=== PATIENT | female | born 1945 | race Caucasian/White ===

== ENCOUNTER 2019-01-30 01:56 | Outpatient (CLI) | payer MEDICARE, OTHER, SELFPAY ==
--- NOTE | 2019-01-30 12:00 | DI.MAMMO_ITS ---
SYMPTOM/DIAGNOSIS: SCREENING MAMMO FOR BREAST CANCER Z12.31 BILATERAL SCREENING MAMMOGRAM: Mammograms were interpreted according to the usual protocol including computer analysis with CAD system, tomosynthesis and C view imaging. Comparison is made with exams from 2012 through 2017. The breasts are composed of scattered fibroglandular densities, breast density category B. No suspicious masses or suspicious microcalcifications are seen. There has been no significant change. IMPRESSION: Category 1, negative mammogram. Yearly screening mammography is recommended. [facility] ASSESSMENT OF FINDINGS: Negative. Category 1. Patient will receive a letter notifying them of these results. BI-RADS category B. There are scattered areas of fibroglandular density.
== END 2019-01-30 02:16 ==
PROVIDERS: PCP Family Medicine; Visit Provider Family Medicine
DX: Z12.31 Encounter for screening mammogram for malignant neoplasm of breast (principal)
CPT/HCPCS: 77063; 77067

== ENCOUNTER 2021-01-28 01:20 | Outpatient (CLI) | payer MEDICARE, OTHER, SELFPAY ==
--- NOTE | 2021-01-28 13:52 | DI.MAMMO_ITS ---
Exam(s) MAMMO SCREENING EXAM: MAMMO SCREENING CLINICAL HISTORY: screening,Z12.39 TECHNIQUE: Mammograms were interpreted according to the usual protocol including computer analysis w [facility] CAD system, tomosynthesis and C-view imaging. COMPARISON: FINDINGS: The breasts are heterogeneously dense. No dominant mass or clumped microcalcification is identified in either breast. The current examination is compared with previous examinations including January 2019 and there has been no gross interval change in appearance in comparison with the prior studies. IMPRESSION: No specific evidence of malignancy at this time. Routine screening examinations are suggested at yea rly intervals in this age group according to the ACS ACR guidelines. BI-RADS Cat 1 - Negative Breast Density - Category C - Heterogeneously dense
== END 2021-01-28 01:40 ==
PROVIDERS: PCP Family Medicine; Visit Provider Family Medicine
DX: Z12.31 Encounter for screening mammogram for malignant neoplasm of breast (principal)
CPT/HCPCS: 77063; 77067

== ENCOUNTER → 2021-05-29 10:51 | Outpatient (BNVA) | payer MEDICARE, OTHER, SELFPAY | PROVIDERS: PCP Family Medicine; Referring Provider Family Medicine; Visit Provider Physical Therapy Assistant | DX: Z12.11 Encounter for screening for malignant neoplasm of colon (principal); Z86.010 Personal history of colon polyps ==

== ENCOUNTER 2021-06-13 03:16 | Outpatient (CLI) | payer MEDICARE, OTHER, SELFPAY ==
[2021-06-13 12:37] LABS: Source Nasal/Nares
[2021-06-13 20:16] LABS: COVID-19 PCR Negative (Negative)
== END 2021-06-13 03:17 | disposition home or self-care (01) ==
LOC: LBO 03:16
PROVIDERS: PCP Family Medicine; Visit Provider Surgery
DX: Z20.822 Contact with and (suspected) exposure to COVID-19 (principal); Z01.818 Encounter for other preprocedural examination
CPT/HCPCS: 87635

== ENCOUNTER 2021-06-16 07:48 | Day surgery (SDC) | payer MEDICARE, OTHER, SELFPAY ==
--- NOTE | 2021-06-16 06:31 | W.COLOREPORT ---
Colonoscopy Report Date of procedure: 06/16/21 Pre-op diagnosis general: Screening for history of colon polyps Post-op diagnosis procedure note: same (diverticulosis and ? rectal polyp) Procedure: Colonoscopy with polypectomy Surgeon: Shaina Flores Anesthesia Type: General:No Airway (Tesha Garner CRNA) Estimated blood loss (mL): 3 Pathology: other (Rectal polyp) Complications: None Disposition: same day Indications: The patient is here for Colonoscopy pre-op. Her last screening was in 2014 and was remarkable for tubular adenomatous polyp. She has no family history of colon cancer. She has not had any bowel habit changes. -Discussed colonoscopy bowel prep as well as the procedure. Discussed possible complications of the procedure to include bleeding, pain, perforation, missed small lesion/polyp, sore throat, aspiration and adverse reaction to the medications. Questions were answered to patient?s satisfaction. No guarantees were implied or given. Prep: Miralax/Dulcolax Procedure Start Time: 08:53 Procedure End Time: 09:16 Retraction Time: 13 minutes Findings: moderate sigmoid diverticulosis One small ? rectal polyp Procedure Description: After informed consent was obtained the patient was taken to the procedure room and placed in a left decubitous position. Monitors were applied and a time out was done. The patients name, date of , procedure, allergies to medications and metal in their body was reviewed. The patient was then sedated. Once sedated and comfortable a rectal exam was done. External exam was normal. Internal exam revealed a normal sphincter tone and no palpable masses. The scope was then introduced and retro-flexed. No internal hemorrhoids, polyps or masses were identified on retro-flexion. The scope was then advanced to the cecum without difficulty. The ileocecal vlave and appendiceal orifice were identified. The prep was adequate. The scope was then slowly retracted over 13 minutes back into the rectum. Polyps were removed with cold forceps in the rectum. There was moderate sigmoid diverticulosis noted. The scope was removed and the patient was woken up and taken back to Same day surgery in stable condition. The patient tolerated the procedure well and there were no immediate complications. Follow up: Follow up will depend on path results
--- NOTE | 2021-06-16 06:32 | PDOC.DSDIS_ITS ---
Discharge Plan Disposition Patient Disposition: HOME Condition: Good Discharge Details Reason For Visit: Colonoscopy Attending Provider: Shaina Flores Primary Care Provider: Christine Cochran Home Meds and New Rx's Prescriptions: Continued multivitamin [Once Daily] 1 EACH tablet 1 ea PO DAILY RF: 0 cholecalciferol (vitamin D3) 1,000 UNIT capsule 1,000 unit PO DAILY RF: 0 biotin 1,000 MCG tablet,chewable 1,000 mcg PO DAILY RF: 0 estradiol [Vagifem] 10 mcg tablet 10 mcg VG TWICE WEEKLY Qty: 24 RF: 4 calcium carbonate [Calcium 500] 500 MG tablet 1 tab PO DAILY RF: 0 Discontinued bisacodyl [Dulcolax (bisacodyl)] 5 mg tablet,delayed release (DR/EC) 5 mg PO ONCE Qty: 4 RF: 0 polyethylene glycol 3350 17 gram/dose powder 17 g PO ONCE Qty: 238 RF: 0 Discharge Instructions Instructions: Diverticulosis (DC) Additional Instructions: Findings: Moderate diverticulosis ? a small polyp Follow up: will depend on the pathology result. You will receive a letter in the mail with my final recommendation in about 10 to 14 days Please call if you develop: fevers >101.5 Nausea or Vomiting Abdominal pain that is not transient Rectal bleeding that is more then a tbsp A hard abdomen and inability to pass gas DAY SURGERY UNIT POST ENDOSCOPY INSTRUCTIONS Instructions for everyone who is given Anesthesia: For your safety, please do the following for the next 24 Hours: a. Do not drive or operate dangerous equipment b. Do not drink alcohol beverages or use any recreational drugs for the first 24 hours or while taking pain medications. The medications in your body may have a reaction that can be dangerous. c. Do not make any important decisions or sign any important papers 1. Generally there are no restrictions on your activity after a day or so has gone by, but you may feel a bit fatigued for a few days. 2. After you arrive home you may have a light meal and return to a normal diet as you can tolerate it without feeling sick to your stomach. 3. After surgery, you may feel pain or discomfort. This should be only transient, but if it persists please contact your doctor. 4. If there are any questions regarding the findings of your procedure, please feel free to contact your doctor. 6. If you are unable to contact your doctor with a problem, contact the [facility] at [phone]. 8. Continue all your regular medications unless directed otherwise. I understand the above instructions and have no questions. Signature of Patient or Responsible Adult Escort Date/Time Name of Responsible Adult Escort Signature of Nurse Date/Time Activity:: Activity as Tolerated Diet:: High Fiber Discharge Orders Discharge Orders: Discharge Order (Routine); Ordered 06/16/21 Ordered By: Shaina Flores
[2021-06-16 07:57] VITALS: BP 122/86; PULSE 72; RESP 16; TEMP 36.1; O2SAT 99
[2021-06-16] MEDS: Lactated Ringers 1,000 ML 80 ML IV (08:14)
--- NOTE | 2021-06-16 08:24 | W.ANESPRE ---
General Info Date of Service Date Performed: 06/16/21 Height: 5 ft 2 in Weight: 60.6 kg Body Mass Index (BMI): 24.4 Surgical Procedure: Operation Date: 06/16/21 09:05 Proposed Procedures Side Surgeon p Joseph Flores MD Meds Allergies and Home Medications Allergies Allergy/AdvReac Type Severity Reaction Status Date / Time No Known Allergies Allergy Unverified 06/16/21 08:03 Home Medication Medication Instructions Recorded cholecalciferol (vitamin D3) 1,000 unit PO DAILY 03/03/13 multivitamin [Once Daily] 1 ea PO DAILY 03/03/13 calcium carbonate [Calcium 500] 1 tab PO DAILY 09/29/13 biotin 1,000 mcg PO DAILY tab.chew 09/15/16 estradiol 10 mcg vaginal tablet 10 mcg VG TWICE WEEKLY #24 tab-cap 01/09/21 bisacodyl 5 mg tablet,delayed 5 mg PO ONCE #4 tab 05/29/21 release polyethylene glycol 3350 17 17 g PO ONCE #238 g 05/29/21 gram/dose oral powder Current Visit Medications: Current Medications Generic Name Dose Route Start Last Admin Trade Name Freq PRN Reason Stop Dose Admin Hyoscyamine Sulfate 0.125 mg 06/16/21 06:33 Hyoscyamine 0.125 Mg Sl/Oral/Chew SL DIRECTED PRN Ringer's Solution 1,000 mls @ 80 mls/hr 06/16/21 06:00 06/16/21 08:14 IV 07/13/21 23:59 80 mls/hr INFUSION ALVIN Administration IV Miscellaneous Supplies 1 each 06/16/21 06:00 Iv Access IV 07/13/21 23:59 DIRECTED ALVIN Ondansetron HCl 4 mg 06/16/21 06:33 Ondansetron 4 Mg/2 Ml Vial IVP Q4H PRN PRN Nausea / Vomiting Sodium Chloride 0 ml 06/16/21 06:00 Normal Saline Flush 10 Ml Syr IV 07/13/21 23:59 PRN PRN Sodium Chloride 0 ml 06/16/21 06:00 Normal Saline 10 Ml Vial IJ 07/13/21 23:59 DIRECTED PRN Sterile Water 0 ml 06/16/21 06:00 Water,Injection,Sterile 10 Ml Vial IJ 07/13/21 23:59 DIRECTED PRN PFSH Active Problems Active Problems: Problem Status Onset Code Neuropathy G62.9 Skin lesion L98.9 Memory changes R41.3 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 Low back pain, non-specific M54.5 Tubular adenoma 09/04/14 D36.9 Vitamin D deficiency 09/14/09 E55.9 Medical History Medical History Acute pain of left shoulder 03/29/17 Atrophy of vagina Basal cell carcinoma of cheek (09/05/13) 09/29/13 S/P EXCISION ON LEFT CHEEK Low back pain, non-specific DDD at L5-S1 Toe pain 04/02/14 Tubular adenoma (09/04/14) Vitamin D deficiency (09/14/09) Surgical History Surgical History Colonoscopy - MAC (~2004) NEG Skin Cancer Removal (09/29/13) BASAL CELL OF LEFT CHEEK Tobacco Smoking/Tobacco Use Status: Never Passive smoking exposure: Yes Second hand exposure: Yes Alcohol Alcohol Intake: current Alcohol intake frequency: 0-2 drinks per day Alcohol type: beer and wine Substance Use Substance use: Never Substance use type: does not use Vital Signs and Lab Results Vital Signs Most Recent Vital Signs in EMR: Most Recent Vital Signs Temp Pulse Resp BP Pulse Ox 36.1 C L 72 16 122/86 99 06/16/21 07:57 06/16/21 07:57 06/16/21 07:57 06/16/21 07:57 06/16/21 07:57 Lab Results Blood Type / Crossmatch: No Data to Display Complete Blood Count: No Data to Display Complete Metabolic Panel: No Data to Display Liver Function Panel: No Data to Display Coagulation Panel: No Data to Display Cardiac Panel: No Data to Display Arterial Blood Gas: No Data to Display Venous Blood Gas: No Data to Display Pancreas Panel: No Data to Display Thyroid Panel: No Data to Display Infectious Disease: Coronavirus (COVID-19)(PCR) Negative (Negative) 06/13/21 10:57 06/13/21 Coronavirus 2019 Source Nasal/Nares 06/13/21 10:57 06/13/21 Blood Cultures: No Data to Display Toxicology Panel: No Data to Display Anesthesia Assessment and Plan Anesthesia History Personal History: No History of Anesthesia Complications Family History: No Family History of Anesthesia Complications Exercise Tolerance Exercise Tolerance: Metabolic Equivalents>4 Pertinent Negatives Pertinent Negatives: No Symptoms of GERD, No Major Cardiovascular Symptoms or Complaints, No Major Pulmonary Symptoms or Complaints and No History of CVA/TIA Cardiac & Pulmonary Exam Cardiac Exam: Normal S1/S2 Heart Sounds Pulmonary Exam: Clear Bilateral Breath Sounds Implantable Cardiac Device Does patient have a Pacemaker or an ICD?: No Airway Exam Known Difficult Airway: No Mallampati Class: 2 Mouth Opening: Normal (> 3cm) Thyromental Distance: Greater than 3 cm Neck Range of Motion: Full ROM Neck Circumference: Normal Teeth Condition: Normal Dentition ASA Classification ASA Score: ASA 2 Emergency Case?: No NPO Status NPO Status: NPO Clears >2 hours, Solids >8 hours Anesthesia Plan Resuscitation Status: Full Code Anesthesia Technique: General Anesthesia Airway Planned: Natural Airway Monitors Used: Standard Monitors
[2021-06-16 08:40] VITALS: BMI 24.4
--- NOTE | 2021-06-16 09:11 | BOWEL_PTH ---
PATIENT: Holli Reis LOC: [facility] U#:[id number] AGE/SX: 75/F ROOM: RE06/16/[address]: Shaina Flores MD : 1945 BED: DIS: 06/16/2021 SPEC #: [id number] RECD: 06/16/21 12:26 STATUS: KATHIA REQ #: [id number] NISREEN: 06/16/21 09:[address]: Shaina Flores DEPT: Surgical Specimen RECD BY: Taylor Call ENTERED: 06/16/21 12:26 SP TYPE: Bowel OTHR DR: Christine Cochran MD, DC Tissues: 1 - BIOPSY BOWEL Procedures: GROSS AND MICRO LEVEL 4 Comments: [id number]
[2021-06-16 09:25] VITALS: BP 90/62; PULSE 68; RESP 16; TEMP 36.7; O2SAT 97
--- NOTE | 2021-06-16 09:35 | W.ANESPOSTOP ---
Postoperative Evaluation Date, Time and Location Date Performed: 06/16/21 Time Performed: :25 Patient Location: Day Surgery Unit Vital Signs Most Recent Imported Vital Signs: Most Recent Vital Signs Temp Pulse Resp BP Pulse Ox 36.7 C 68 16 90/62 L 97 06/16/21 09:25 06/16/21 09:25 06/16/21 09:25 06/16/21 09:25 06/16/21 09:25 Pain Score Most Recent Pain Score: Most Recent Pain Score Pain Level 0 06/16/21 09:25 Assessment Mental Status: Awake (Alert & Oriented to Patient Baseline) Airway and Respiratory Function: Patent airway with normal (patient baseline) respiratory exam Cardiovascular Function: Hemodynamically Stable Hydration Status: Adequately Hydrated Nausea & Vomiting: No Nausea or Vomiting Pain: Pt. Denies Any Pain Peripheral Nerve Block: Patient did not receive a nerve block
[2021-06-16 10:05] VITALS: BP 112/79; PULSE 65; RESP 16; TEMP 36.2; O2SAT 100
== END 2021-06-16 11:04 | disposition home or self-care (01) ==
LOC: SUR 07:48
PROVIDERS: PCP Family Medicine; Visit Provider Surgery
PROC: 0DJD8ZZ Inspection of Lower Intestinal Tract, Via Natural or Artificial Opening Endoscopic (ICD-10-PCS; CPT 45378; principal; 2021-06-16 09:00)
DX: Z12.11 Encounter for screening for malignant neoplasm of colon (principal); K57.30 Diverticulosis of large intestine without perforation or abscess without bleeding; K62.1 Rectal polyp; E55.9 Vitamin D deficiency, unspecified
CPT/HCPCS: 45380; 88305; J2001

== ENCOUNTER → 2022-03-09 00:52 | Outpatient (CLI) | payer MEDICARE, SELFPAY ==
--- NOTE | 2022-03-09 06:45 | DI.RAD_ITS ---
Exam(s) XR LUMBAR SPINE COMPLETE EXAM: XR LUMBAR SPINE COMPLETE CLINICAL HISTORY: low back pain,m54.5 TECHNIQUE: COMPARISON: No exams were available for comparison FINDINGS: Five views were obtained. There are mild degenerative changes of the SI joints bilaterally. There is loss of height at the L5-S1 intervertebral disc space. Otherwise intervertebral disc spaces appear well maintained. There are prominent endplate and facet hypertrophic degenerative changes throughout the lumbar region . There is no evidence of acute fracture or dislocation. IMPRESSION: Moderate degenerative changes as described above. RADIATION DOSE DELIVERED: Total DLP
== END ==
PROVIDERS: PCP Family Medicine; Visit Provider Family Medicine
DX: M54.59 Other low back pain (principal); M51.37 Other intervertebral disc degeneration, lumbosacral region
CPT/HCPCS: 72110

== ENCOUNTER 2022-09-02 16:32 | Outpatient (REF) | payer MEDICARE, SELFPAY ==
[2022-09-03 15:01] LABS: Campylobacter PCR Negative (Negative); Salmonella PCR Negative (Negative); Shiga Toxin PCR Negative (Negative); Shigella/Enteroinvasive Ecoli Negative (Negative)
== END 2022-09-02 16:33 | disposition home or self-care (01) ==
LOC: LBN 16:32
PROVIDERS: PCP Family Medicine; Visit Provider Family Medicine
DX: R19.7 Diarrhea, unspecified (principal)
CPT/HCPCS: 87505

== ENCOUNTER 2023-05-25 12:23 | Outpatient (REF) | payer MEDICARE, SELFPAY ==
--- NOTE | 2023-05-25 12:00 | SKI_PTH ---
PATIENT: Holli Reis LOC: [facility] U#:[id number] AGE/SX: 77/F ROOM: RE05/25/[address]: Christine Cochran MD, DC : 1945 BED: DIS: 05/25/2023 SPEC #: [id number] RECD: 05/26/23 11:37 STATUS: KATHIA REQ #: [id number] NISREEN: 05/25/23 12:[address]: Christine Cochran DEPT: Surgical Specimen RECD BY: Taylor Call Tissues: 1 - SKIN BIOPSY(SHAVE/PUNCH) Procedures: SKIN LEVEL 4 Comments: [id number]
== END 2023-05-25 12:24 | disposition home or self-care (01) ==
LOC: LBN 12:23
PROVIDERS: PCP Family Medicine; Visit Provider Family Medicine
DX: L82.1 Other seborrheic keratosis (principal)
CPT/HCPCS: 88305

== ENCOUNTER → 2023-07-29 01:51 | Outpatient (CLI) | payer MEDICARE, SELFPAY ==
--- NOTE | 2023-07-29 07:45 | DI.DEXA_ITS ---
Exam(s) XR DEXA BONE DENSITY W/WO NEYMAR EXAM: XR DEXA BONE DENSITY W/WO NEYMAR CLINICAL HISTORY: screening for osteoporosis in postmenopausal woman.z78.0 TECHNIQUE: COMPARISON: Comparison examination is 09/28/2005. FINDINGS: Lateral Spine Image: Degenerative changes are seen throughout. No compression deformities identified . Left hip: Total T-Score: -1.6. This compares to -0.8 on the prior examination. Total Z-Score: 0.4 T- and Z-scores: Findings are consistent with osteopenia. Lumbar Spine: Total T-Score: -2.1. This compares to -2.8 on the prior examination. Total Z-Score: 0.4 T- and Z-scores: Findings are consistent with osteopenia. There is osteoporosis seen in the L1 and L 3 vertebral bodies with T-scores of -2.5 and -3.0 respectively. IMPRESSION: Osteoporosis seen in lumbar vertebral bodies as described.
== END ==
PROVIDERS: PCP Family Medicine; Visit Provider Nurse Practitioner Family
DX: Z78.0 Asymptomatic menopausal state (principal); Z13.820 Encounter for screening for osteoporosis; M81.0 Age-related osteoporosis without current pathological fracture; M85.88 Other specified disorders of bone density and structure, other site
CPT/HCPCS: 77080

== ENCOUNTER 2023-07-29 12:46 | Outpatient (CLI) | payer MEDICARE, SELFPAY ==
[2023-07-29 12:12] LABS: Anion Gap 7.5 mmol/L (3-11); BUN 14 mg/dL (7-18); CO2 28.5 mmol/L (21.0-32.0); Calcium 9.4 mg/dL (8.5-10.1); Calculated LDL 147 mg/dL (<100); Chloride 101 mmol/L (98-107); Cholesterol 249 mg/dL (<200); Estimated GFR 58.02 (mL/min/1.73m2); Glucose 98 mg/dL (74-106); HDL Cholesterol 86 mg/dL (40-60); Potassium 4.1 mmol/L (3.5-5.1); Sodium 137 mmol/L (136-145); Triglyceride 83 mg/dL (<150)
== END 2023-07-29 12:47 | disposition home or self-care (01) ==
LOC: LBO 12:46
PROVIDERS: PCP Family Medicine; Visit Provider Nurse Practitioner Family
DX: Z00.00 Encounter for general adult medical examination without abnormal findings (principal); E78.5 Hyperlipidemia, unspecified
CPT/HCPCS: 36415; 80048; 80061

== ENCOUNTER 2025-05-08 17:17 | Outpatient (REF) | payer MEDICARE, SELFPAY ==
--- NOTE | 2025-05-08 13:10 | SKI_PTH ---
PATIENT: Holli Reis LOC: [facility] U#:[id number] AGE/SX: 79/F ROOM: RE05/08/[address]: Christine Cochran MD, DC : 1945 BED: DIS: 05/08/2025 SPEC #: [id number] RECD: 05/08/25 18:10 STATUS: KATHIA REQ #: [id number] NISREEN: 05/08/25 13:[address]: Christine Cochran DEPT: Surgical Specimen RECD BY: Taylor Call Tissues: 1 - SKIN BIOPSY(SHAVE/PUNCH) Procedures: SKIN LEVEL 4 Comments: [id number]
== END 2025-05-08 17:18 | disposition home or self-care (01) ==
LOC: NCHCN 17:17
PROVIDERS: PCP Family Medicine; Visit Provider Family Medicine
DX: C44.629 Squamous cell carcinoma of skin of left upper limb, including shoulder (principal)
CPT/HCPCS: 88305

== ENCOUNTER → 2025-05-30 09:00 | Outpatient (BNVA) | payer MEDICARE, SELFPAY | PROVIDERS: PCP Family Medicine; Referring Provider Family Medicine; Visit Provider Physical Therapy Assistant | DX: C44.629 Squamous cell carcinoma of skin of left upper limb, including shoulder (principal) | CPT/HCPCS: 99213 ==

== ENCOUNTER → 2025-07-11 09:30 | Outpatient (BNVA) | payer MEDICARE, SELFPAY | PROVIDERS: PCP Family Medicine; Referring Provider Family Medicine; Visit Provider Physical Therapy Assistant | DX: D23.62 Other benign neoplasm of skin of left upper limb, including shoulder (principal) | CPT/HCPCS: 11400 ==

== ENCOUNTER 2025-07-11 10:00 | Outpatient (REF) | payer MEDICARE, SELFPAY ==
--- NOTE | 2025-07-11 10:10 | SKI_PTH ---
PATIENT: Holli Reis LOC: [facility] U#:[id number] AGE/SX: 79/F ROOM: RE07/11/[address]: PH[place]EN[place] Walker : 1945 BED: DIS: 07/11/2025 SPEC #: [id number] RECD: 07/11/25 17:50 STATUS: KATHIA REBill #: [id number] NISREEN: 07/11/25 10:[address]: Antonieta Torres DEPT: Surgical Specimen RECD BY: Taylor Call ENTERED: 07/11/25 17:50 SP TYPE: SHELLEY MOISE DR: Christine Cochran MD, DC Tissues: 1 - SKIN BIOPSY(SHAVE/PUNCH) Procedures: SKIN LEVEL 4 Comments: [id number]
== END 2025-07-11 10:01 | disposition home or self-care (01) ==
LOC: LBN 10:00
PROVIDERS: PCP Family Medicine; Visit Provider Physical Therapy Assistant
DX: L90.5 Scar conditions and fibrosis of skin (principal)
CPT/HCPCS: 88305